=== PATIENT | female | born 1960 | race Asian ===

== ENCOUNTER 2019-09-24 23:56 | Emergency (ER) | payer OTHER ==
[~2019-09-24] VITALS: Ht 162.6 cm; Wt 90.7 kg
[2019-09-25 00:33] LABS: PLATELET COUNT 188 K/uL (152-353)
[2019-09-25 00:45] LABS: POTASSIUM 4.3 mmol/L (3.6-5.2); SODIUM 140 mmol/L (136-145)
[2019-09-25 01:09] LABS: PARTIAL THROMBOPLASTIN TIME 23.9 SECONDS (24.5-33.6)
[2019-09-25 02:49] VITALS: BP 140/88; TEMP 97.9
== END 2019-09-25 02:49 | disposition home or self-care (01) ==
LOC: ED 23:56
PROVIDERS: Emergency Medicine Emergency Medical Services
DX: K21.9 Gastro-esophageal reflux disease without esophagitis (principal); M54.2 Cervicalgia; M54.5 Low back pain
CPT/HCPCS: 80053; 82550; 83880; 84484; 85027; 85379; 85610; 85730; 93005; 96372; 99283; J1885; J2360

== ENCOUNTER 2019-10-20 01:38 | Emergency (ER) | payer OTHER ==
[~2019-10-20] VITALS: Ht 162.6 cm; Wt 90.7 kg
[2019-10-20 02:24] LABS: PLATELET COUNT 206 K/uL (152-353)
[2019-10-20 02:32] LABS: POTASSIUM 4.2 mmol/L (3.6-5.2); SODIUM 139 mmol/L (136-145)
[2019-10-20 04:50] VITALS: BP 139/78; TEMP 97.7
== END 2019-10-20 04:50 | disposition home or self-care (01) ==
LOC: ED 01:38
PROVIDERS: Emergency Medicine
DX: K21.9 Gastro-esophageal reflux disease without esophagitis (principal); R07.89 Other chest pain; R00.1 Bradycardia, unspecified
CPT/HCPCS: 80053; 82550; 82553; 84484; 85027; 93005; 96374; 99284; J3490

== ENCOUNTER 2020-12-10 15:35 | Emergency (ER) | payer OTHER ==
[~2020-12-10] VITALS: Ht 162.6 cm; Wt 80.3 kg
[2020-12-10 15:44] VITALS: TEMP 97.3
[2020-12-10 17:19] LABS: PLATELET COUNT 208 K/uL (152-353)
[2020-12-10 17:27] LABS: POTASSIUM 3.8 mmol/L (3.6-5.2); SODIUM 139 mmol/L (136-145)
[2020-12-10 17:29] LABS: PARTIAL THROMBOPLASTIN TIME 24.6 SECONDS (24.5-33.6)
[2020-12-10 18:35] VITALS: BP 118/69
== END 2020-12-10 18:35 | disposition home or self-care (01) ==
LOC: ED 15:35
PROVIDERS: Hospitalist
DX: R07.89 Other chest pain (principal); K21.9 Gastro-esophageal reflux disease without esophagitis; K29.60 Other gastritis without bleeding; N30.10 Interstitial cystitis (chronic) without hematuria
CPT/HCPCS: 36415; 80053; 81000; 82150; 82550; 83690; 83880; 84484; 85027; 85610; 85730; 93005; 96374; 96375; 99284; J1885; J2405

== ENCOUNTER 2021-08-28 17:47 | Emergency (ER) | payer OTHER ==
[~2021-08-28] VITALS: Ht 162.6 cm; Wt 88.0 kg
[2021-08-28 19:08] LABS: PLATELET COUNT 204 K/uL (152-353)
[2021-08-28 19:12] LABS: POTASSIUM 4.6 mmol/L (3.6-5.2); SODIUM 140 mmol/L (136-145)
[2021-08-28 20:15] VITALS: BP 142/70; TEMP 98
== END 2021-08-28 20:15 | disposition home or self-care (01) ==
LOC: ED 17:47
PROVIDERS: Emergency Medicine
DX: M79.18 Myalgia, other site (principal); R07.89 Other chest pain; F32.89 Other specified depressive episodes
CPT/HCPCS: 36415; 80048; 84484; 85027; 85379; 93005; 96372; 99283; J1885; J2360

== ENCOUNTER 2022-01-05 09:40 | Emergency (ER) | payer OTHER ==
[~2022-01-05] VITALS: Ht 162.6 cm; Wt 88.0 kg
[2022-01-05 10:47] LABS: PLATELET COUNT 182 K/uL (152-353)
[2022-01-05 11:12] LABS: POTASSIUM 3.9 mmol/L (3.6-5.2)
[2022-01-05 13:08] VITALS: BP 143/63; TEMP 97.3
== END 2022-01-05 13:08 | disposition home or self-care (01) ==
LOC: ED 09:40
PROVIDERS: Emergency Medicine
DX: R07.89 Other chest pain (principal); R68.84 Jaw pain
CPT/HCPCS: 80053; 81000; 84484; 85027; 85610; 93005; 96372; 99284; J2270; J2405

== ENCOUNTER 2022-01-19 02:12 | Emergency (ER) | payer OTHER ==
[~2022-01-19] VITALS: Ht 162.6 cm; Wt 86.6 kg
[2022-01-19 02:20] VITALS: TEMP 98
[2022-01-19 02:56] LABS: PLATELET COUNT 194 K/uL (152-353)
[2022-01-19 05:04] VITALS: BP 140/59
== END 2022-01-19 05:06 | disposition home or self-care (01) ==
LOC: ED 02:12
PROVIDERS: Hospitalist
DX: R10.84 Generalized abdominal pain (principal); K59.09 Other constipation
CPT/HCPCS: 36415; 80053; 80320; 81000; 83690; 85027; 96360; 96375; 99284; J1885; J2405

== ENCOUNTER 2023-05-07 18:56 | Emergency (ER) | payer OTHER ==
[~2023-05-07] VITALS: Ht 162.6 cm; Wt 81.6 kg
[2023-05-07 19:15] VITALS: BP 163/74; TEMP 98.9
[2023-05-07 19:53] LABS: PLATELET COUNT 182 K/uL (152-353)
[2023-05-07 20:14] LABS: POTASSIUM 3.9 mmol/L (3.6-5.2)
== END 2023-05-07 21:15 | disposition home or self-care (01) ==
LOC: ED 18:56
PROVIDERS: Family Medicine
DX: L50.9 Urticaria, unspecified (principal); K04.7 Periapical abscess without sinus; B37.31 Acute candidiasis of vulva and vagina; I10 Essential (primary) hypertension
CPT/HCPCS: 36415; 80053; 81002; 82150; 85027; 86140; 96374; 96375; 99284; J1885; J2930